=== PATIENT | male | born 1975 | race Two or more races ===

== ENCOUNTER 2020-02-22 14:40 | Emergency (ER) | payer OTHER ==
[~2020-02-22] VITALS: Ht 185.4 cm; Wt 104.5 kg
[2020-02-22] MEDS ORDERED: AMOX TR/POT CLAV 875 MG/125 MG TABLET PO ONE (17:00)
[2020-02-22] MEDS ORDERED: POVIDONE-IODINE 10% 15 ML SOLUTION UD MISC ONE (17:00)
[2020-02-22] MEDS ORDERED: PERTUSS(ACELL),DIPH,TET VAC/PF 0.5 ML VIAL IM ONE (18:15)
[2020-02-22 18:20] VITALS: BP 145/93
== END 2020-02-22 18:31 | disposition home or self-care (01) ==
LOC: EDBD 14:42 → EMS 14:42
DX: S51.842A Puncture wound with foreign body of left forearm, initial encounter (principal); W45.8XXA Other foreign body or object entering through skin, initial encounter; Y93.89 Activity, other specified; Y92.89 Other specified places as the place of occurrence of the external cause; Y99.8 Other external cause status
CPT/HCPCS: 90471; 90715